=== PATIENT | male | born 1985 | race Caucasian/White ===

== ENCOUNTER 2019-02-05 16:39 | Emergency (ER) | payer OTHER ==
[~2019-02-05] VITALS: Ht 182.9 cm; Wt 86.2 kg
== END 2019-02-05 22:10 | disposition home or self-care (01) ==
LOC: ER 16:39
DX: T40.7X1A Poisoning by cannabis (derivatives), accidental (unintentional), initial encounter (principal); F12.10 Cannabis abuse, uncomplicated
CPT/HCPCS: 93005; 93010; 96374; 99284-25; J2060; J7030